=== PATIENT | male | born 1950 | race Caucasian/White ===

== ENCOUNTER 2021-10-01 09:05 | Emergency (ER) | payer MEDICARE, OTHER ==
[~2021-10-01] VITALS: Ht 162.6 cm; Wt 76.0 kg
[2021-10-01] MEDS ORDERED: ASPIRIN 325MG EC TABLET PO ONE (11:30)
[2021-10-01] MEDS ORDERED: SODIUM CHLORIDE 0.9% 1,000 ML IV ONE (11:30)
[2021-10-01] MEDS ORDERED: IBUPROFEN 400MG TABLET PO ONE (11:30)
[2021-10-01 11:37] LABS: EOSINOPHILS % 2.3 % (0.0-5.0); HEMATOCRIT. 47.3 % (42.0-52.0); HEMOGLOBIN. 15.9 g/dL (14.0-18.0); MEAN CORPUSCULAR VOLUME 92.4 fL (80.0-94.0); MEAN PLATELET VOLUME 8.5 fl (7.4-10.4); MONOCYTES % 7.5 % (2.0-8.0); NEUTROPHILS % 60.2 % (40.0-76.0); PLATELET 240 x1000/uL (130-400); RED BLOOD CELL COUNT 5.12 mill/uL (4.7-6.1)
[2021-10-01 11:45] LABS: CHLORIDE 102 mEq/L (98-107)
[2021-10-01 15:54] VITALS: BP 107/77
== END 2021-10-01 16:28 | disposition home or self-care (01) ==
LOC: ER 09:05
DX: R07.89 Other chest pain (principal); E78.00 Pure hypercholesterolemia, unspecified; Z98.890 Other specified postprocedural states
CPT/HCPCS: 36415; 71045; 80053; 83880; 84484; 85025; 93005; 96360; 99285; J7030

== ENCOUNTER 2022-05-29 14:01 | Emergency (ER) | payer MEDICARE, OTHER ==
[~2022-05-29] VITALS: Ht 167.6 cm; Wt 77.0 kg
[2022-05-29 14:47] VITALS: BP 138/75
== END 2022-05-29 14:49 | disposition home or self-care (01) ==
LOC: ER 14:01
DX: K62.89 Other specified diseases of anus and rectum (principal); E78.00 Pure hypercholesterolemia, unspecified; I10 Essential (primary) hypertension
CPT/HCPCS: 99281

== ENCOUNTER 2023-10-19 03:32 | Inpatient (IN) | payer OTHER, MEDICARE ==
[~2023-10-19] VITALS: Ht 162.6 cm; Wt 77.3 kg
[2023-10-19 04:01] LABS: BASOPHILS % 0.8 % (0.0-2.0); EOSINOPHILS % 3.6 % (0.0-5.0); HEMATOCRIT. 43.3 % (42.0-52.0); HEMOGLOBIN. 14.9 g/dL (14.0-18.0); LYMPHOCYTES % 36.5 % (20.0-50.0); MEAN CORPUSCULAR HEMOGLOBIN 31.3 pg (28.0-32.0); MEAN CORPUSCULAR HGB CONC 34.4 g/dL (31.0-37.0); MEAN PLATELET VOLUME 8.4 fl (7.4-10.4); MONOCYTES % 9.8 % (2.0-8.0); NEUTROPHILS % 49.3 % (40.0-76.0); PLATELET 195 x1000/uL (130-400); RED BLOOD CELL COUNT 4.76 mill/uL (4.7-6.1); WHITE BLOOD COUNT 8.5 x1000/uL (4.5-11.0)
[2023-10-19 04:12] LABS: PARTIAL THROMBOPLASTIN TIME 30.5 sec (23.4-31.0); PROTHROMBIN TIME 11.1 sec (9.6-11.0)
[2023-10-19] MEDS ORDERED: MORPHINE SULFATE 4 MG/ML CPJ (NOT FOR IM USE) IV ONE (04:15)
[2023-10-19] MEDS: ASPIRIN 81MG TABLET PO ONE ×2 (04:29→04:35)
[2023-10-19 05:36] LABS: CARBON DIOXIDE 25 mEq/L (21-32); CHLORIDE 100 mEq/L (98-107); POTASSIUM 3.5 mEq/L (3.5-5.1); SODIUM 135 mEq/L (136-145)
[2023-10-19 05:37] LABS: CALCIUM 9.6 mg/dL (8.7-10.4); CREATININE 0.9 mg/dL (0.6-1.3); GLUCOSE 110 mg/dL (70-105)
[2023-10-19 05:38] LABS: ALBUMIN 4.5 g/dL (3.2-4.8)
[2023-10-19 05:39] LABS: ALANINE AMINOTRANSFERASE 31 IU/L (10-49); ASPARTATE AMINOTRANSFERASE 31 IU/L (<34)
[2023-10-19 06:09] LABS: BILIRUBIN TOTAL 0.6 mg/dL (0.1-1.0)
[2023-10-19 06:10] LABS: PROTEIN TOTAL 7.9 g/dL (6.0-8.3)
[2023-10-19 06:11] LABS: UREA NITROGEN BLOOD 8 mg/dL (9-23)
[2023-10-19 06:16] LABS: TROPONIN I HIGH SENSITIVITY < 4 ng/L (3.0-53)
[2023-10-19 06:33] LABS: CLARITY URINE CLEAR (CLEAR); COLOR URINE YELLOW (YELLOW); GLUCOSE URINE NEGATIVE (NEGATIVE); KETONES URINE NEGATIVE (NEGATIVE); LEUKOCYTE ESTERASE URINE NEGATIVE (NEGATIVE); NITRITE URINE NEGATIVE (NEGATIVE); OCCULT BLOOD URINE NEGATIVE (NEGATIVE); PH URINE 6.5 (4.5-8.0); PROTEIN URINE NEGATIVE (NEGATIVE); SPECIFIC GRAVITY URINE 1.008 (1.005-1.030); UROBILINOGEN URINE 0.2 E.U./dL (0.2-1.0)
[2023-10-19 06:39] LABS: TROPONIN I HIGH SENSITIVITY < 4 ng/L (3.0-53)
[2023-10-19] MEDS ORDERED: IPRATROPIUM/ALBUTEROL 0.5-3(2.5)MG/3ML NEB NEB PRN (08:15)
[2023-10-19] MEDS ORDERED: ACETAMINOPHEN 325MG TABLET PO PRN ×2 (08:15)
[2023-10-19] MEDS ORDERED: KETOROLAC 15MG/ML VIAL IV PRN (08:15)
[2023-10-19] MEDS ORDERED: CLONIDINE 0.1MG TABLET PO PRN (08:15)
[2023-10-19] MEDS ORDERED: GUAIFENESIN 200MG/10ML SUGAR FREE UDC PO PRN (08:15)
[2023-10-19] MEDS ORDERED: NITROGLYCERIN 0.4MG TABLET SL SL PRN (08:15)
[2023-10-19] MEDS ORDERED: MAGNESIUM/ALUMINUM HYDROXIDE/SIMETHICONE 30ML UDC PO PRN (08:15)
[2023-10-19] MEDS ORDERED: DOCUSATE SODIUM 100MG CAPSULE PO PRN (08:15)
[2023-10-19] MEDS ORDERED: ONDANSETRON HCL 4MG/2ML INJ IV PRN (08:15)
[2023-10-19] MEDS ORDERED: ZOLPIDEM TARTRATE 5MG TABLET PO PRN (08:15)
[2023-10-19 09:03] LABS: VITAMIN B12 SERUM 926 pg/mL (211-911)
[2023-10-19 09:48] LABS: CHOLESTEROL 120 mg/dL (<200); HDL CHOLESTEROL 34 mg/dL (>55); LDL CHOLESTEROL 83 mg/dL (5-100); T4 FREE 1.01 ng/dL (0.89-1.76); THYROID STIMULATING HORMONE 2.12 uIU/mL (0.55-4.78); TRIGLYCERIDE 85 mg/dL (0-150)
[2023-10-19 10:11] LABS: ETHANOL BLOOD < 10 mg/dL (<10); TROPONIN I HIGH SENSITIVITY < 4 ng/L (3.0-53)
[2023-10-19 10:57] VITALS: BP 114/72; PULSE 80; RESP 17; TEMP 97.6
[2023-10-19] MEDS: ASPIRIN 325MG EC TABLET PO SCH (11:20)
[2023-10-19] MEDS: FAMOTIDINE 20MG TABLET PO SCH ×2 (11:20→21:10)
[2023-10-19] MEDS: ENOXAPARIN 40MG/0.4ML SYR SUBCUT SCH (11:21)
[2023-10-19 12:00] VITALS: BP 114/72; PULSE 80; RESP 18; TEMP 97.8
[2023-10-19 12:03] LABS: *AMPHETAMINES SCREEN URINE NEGATIVE (NEGATIVE); *BARBITURATES SCREEN URINE NEGATIVE (NEGATIVE); *BENZODIAZEPINES SCREEN URINE NEGATIVE (NEGATIVE); *COCAINE SCREEN URINE NEGATIVE (NEGATIVE); CANNABINOID URINE SCREEN NEGATIVE (NEGATIVE); ECSTASY MDMA SCREEN URINE NEGATIVE (NEGATIVE); METHADONE URINE SCREEN Neg (NEGATIVE); OPIATES URINE SCREEN NEGATIVE (NEGATIVE); PHENCYCLIDINE URINE SCREEN NEGATIVE (NEGATIVE)
[2023-10-19] MEDS ORDERED: DEXTROSE 50% WATER 50ML SYRINGE IV PRN (13:00)
[2023-10-19 16:00] VITALS: BP 125/69; PULSE 79; RESP 17; TEMP 97.5
[2023-10-19 19:59] VITALS: BP 142/78; PULSE 109; RESP 20; TEMP 98.7
[2023-10-19 22:32] LABS: CREATINE KINASE 337 IU/L (46-171); CREATINE KINASE MB FRACTION 1.7 ng/mL (0.5-3.6)
[2023-10-19 22:34] LABS: TROPONIN I HIGH SENSITIVITY < 4 ng/L (3.0-53)
[2023-10-19 23:59] VITALS: BP 124/83; PULSE 102; RESP 20; TEMP 98.4
[2023-10-20 04:00] VITALS: BP 142/97; PULSE 116; RESP 20; TEMP 98.5
[2023-10-20 07:15] LABS: EOSINOPHILS % 0.7 % (0.0-5.0); HEMATOCRIT. 42.3 % (42.0-52.0); HEMOGLOBIN. 14.7 g/dL (14.0-18.0); LYMPHOCYTES % 22.9 % (20.0-50.0); MEAN CORPUSCULAR HEMOGLOBIN 31.9 pg (28.0-32.0); MEAN CORPUSCULAR HGB CONC 34.8 g/dL (31.0-37.0); MEAN CORPUSCULAR VOLUME 91.6 fL (80.0-94.0); MONOCYTES % 12.3 % (2.0-8.0); NEUTROPHILS % 63.1 % (40.0-76.0); RED BLOOD CELL COUNT 4.61 mill/uL (4.7-6.1); RED CELL DISTRIBUTION WIDTH 13.9 % (11.6-14.6)
[2023-10-20 07:44] LABS: DIFFERENTIAL COMMENT 1
[2023-10-20 07:49] LABS: CREATINE KINASE 799 IU/L (46-171); CREATINE KINASE MB FRACTION 2.2 ng/mL (0.5-3.6)
[2023-10-20 08:00] VITALS: BP 120/79; PULSE 80; RESP 18; TEMP 98.6
[2023-10-20 08:00] LABS: TROPONIN I HIGH SENSITIVITY < 4 ng/L (3.0-53)
[2023-10-20 08:01] LABS: ALANINE AMINOTRANSFERASE 30 IU/L (10-49); ALBUMIN 4.1 g/dL (3.2-4.8); ASPARTATE AMINOTRANSFERASE 47 IU/L (<34); BILIRUBIN TOTAL 0.5 mg/dL (0.1-1.0); CALCIUM 8.7 mg/dL (8.7-10.4); CARBON DIOXIDE 23 mEq/L (21-32); CHLORIDE 97 mEq/L (98-107); CREATININE 0.9 mg/dL (0.6-1.3); GLUCOSE 98 mg/dL (70-105); PHOSPHORUS 3.2 mg/dL (2.5-4.9); POTASSIUM 3.9 mEq/L (3.5-5.1); PROTEIN TOTAL 7.5 g/dL (6.0-8.3); SODIUM 132 mEq/L (136-145); UREA NITROGEN BLOOD 11 mg/dL (9-23)
[2023-10-20] MEDS: ENOXAPARIN 40MG/0.4ML SYR SUBCUT SCH ×2 (09:00→17:49)
[2023-10-20] MEDS: ASPIRIN 325MG EC TABLET PO SCH ×2 (09:00→17:49)
[2023-10-20] MEDS: FAMOTIDINE 20MG TABLET PO SCH ×2 (09:00→21:08)
[2023-10-20] MEDS: DEXT 5%/0.45% NACL 1000ML 1,000 ML IV SCH ×3 (10:15→21:08)
[2023-10-20 12:00] VITALS: BP 130/82; PULSE 80; RESP 18; TEMP 98.4
[2023-10-20 14:17] LABS: PLATELET 184 x1000/uL (130-400)
[2023-10-20 16:00] VITALS: BP 131/79; PULSE 70; RESP 18; TEMP 98.4
[2023-10-20 20:00] VITALS: BP 129/88; PULSE 88; RESP 18; TEMP 98
[2023-10-21] VITALS: BP 133/72; PULSE 91; RESP 17; TEMP 98
[2023-10-21 04:00] VITALS: BP 137/91; PULSE 82; RESP 18; TEMP 98
[2023-10-21] MEDS: DEXT 5%/0.45% NACL 1000ML 1,000 ML IV SCH (05:47)
[2023-10-21 08:00] VITALS: BP_SYST 115; BP_SYST 134; BP_DIAS 78; BP_DIAS 80; PULSE 77; PULSE 78; RESP 18; TEMP 97.6; TEMP 99
[2023-10-21] MEDS: FAMOTIDINE 20MG TABLET PO SCH (08:38)
[2023-10-21] MEDS: ASPIRIN 325MG EC TABLET PO SCH (08:38)
[2023-10-21] MEDS: ENOXAPARIN 40MG/0.4ML SYR SUBCUT SCH (08:38)
[2023-10-21 12:00] VITALS: BP 142/85; PULSE 76; RESP 18; TEMP 97.9
[2023-10-21] MEDS ORDERED: TAMS-11 PO (13:28)
[2023-10-21] MEDS ORDERED: LIP40 PO (13:28)
[2023-10-21] MEDS ORDERED: OMEG1CAP17 PO (13:28)
[2023-10-21] MEDS ORDERED: ALBU10.7 INH (13:28)
[2023-10-21] MEDS ORDERED: AMLO5TAB88 PO (13:28)
[2023-10-21] MEDS ORDERED: TAMSULOSIN HCL 0.4MG SR CAPSULE PO SCH (13:45)
[2023-10-21] MEDS ORDERED: AMLODIPINE 5MG TABLET PO SCH (13:45)
[2023-10-21] MEDS ORDERED: MAGNESIUM 1 G PREMIX 100 ML IV NR (15:00)
[2023-10-21 16:00] VITALS: BP 123/83; PULSE 65; RESP 18; TEMP 97.8
[2023-10-21 17:09] VITALS: BP 123/83; PULSE 65; TEMP 97.8; O2SAT 100
[2023-10-21] MEDS ORDERED: ATORVASTATIN CALCIUM 40MG TABLET PO SCH (21:00)
== END 2023-10-21 20:30 | disposition short-term general hospital (02) | DRG 303 ==
LOC: ER 03:32 → 5WST 06:12 → EDBEDREQ 06:14
PROVIDERS: ADMIT Internal Medicine; ATTEND Internal Medicine
DX: I25.110 Atherosclerotic heart disease of native coronary artery with unstable angina pectoris (principal); E87.1 Hypo-osmolality and hyponatremia; I10 Essential (primary) hypertension; R73.9 Hyperglycemia, unspecified; Z20.822 Contact with and (suspected) exposure to COVID-19; E78.00 Pure hypercholesterolemia, unspecified; G47.00 Insomnia, unspecified; K59.00 Constipation, unspecified; Z79.82 Long term (current) use of aspirin
CPT/HCPCS: 36415; 71045; 80053; 80061; 80305; 80320; 81003; 82550; 82553; 82607; 83036; 83735; 83880; 84100; 84439; 84443; 84484; 85025; 87426; 93005; 93306; 93970; 99291; J1650; J1885; J2270; J3475; G0480